=== PATIENT | female | born 1975 | race Caucasian/White ===

== ENCOUNTER 2025-02-12 10:03 | Emergency (ER) | payer BC, OTHER ==
[~2025-02-12] VITALS: Ht 160 cm; Wt 54.4 kg
[2025-02-12 10:05] VITALS: O2SAT 98
[2025-02-12] MEDS: LIDOCAINE HCL 1% 20 ML VIAL TP ONE (11:16)
[2025-02-12] MEDS ORDERED: HYDROCODONE/APAP 5-325MG TABLET ONE (11:19)
[2025-02-12] MEDS ORDERED: TDAP DIPH,PERTUSS,TET VAC/PF 0.5 ML DISP.SYRIN IM ONE (11:19)
[2025-02-12] MEDS: TDAP DIPH,PERTUSS,TET VAC/PF 0.5 ML DISP.SYRIN IM ONE (11:27)
[2025-02-12] MEDS: HYDROCODONE/APAP 5-325MG TABLET PO ONE (11:28)
[2025-02-12] MEDS ORDERED: HYDR-3972 PO (11:38)
[2025-02-12] MEDS ORDERED: CEPH500C2 PO (11:38)
[2025-02-12] MEDS ORDERED: NEOMY/BACITRA/POLYMYXIN B OINT UD PACKET TP ONE (11:42)
== END 2025-02-12 11:55 | disposition home or self-care (01) ==
LOC: ER 10:03 → EDBD 10:03 → ER 11:55
DX: S61.211A Laceration without foreign body of left index finger without damage to nail, initial encounter (principal); W26.8XXA Contact with other sharp object(s), not elsewhere classified, initial encounter; Y93.89 Activity, other specified; Y92.098 Other place in other non-institutional residence as the place of occurrence of the external cause; Y99.8 Other external cause status
CPT/HCPCS: 90715; A4606; A4663